=== PATIENT | female | born 1955 | race Caucasian/White ===

== ENCOUNTER 2022-12-28 01:04 | Emergency (ER) | payer MEDICARE, OTHER, SELFPAY ==
[2022-12-28 01:06] VITALS: PULSE 0; BMI 25.9
--- NOTE | 2022-12-28 01:17 | ED.CPR ---
HPI - CPR General Stated Complaint: cardiac arrest Time Seen by Provider: 12/28/22 01:08 Source: EMS Mode of arrival: EMS Limitations: other History of Present Illness HPI narrative: Patient comes in the emergency room in cardiac arrest. According to EMS, approximately at midnight, patient had a witnessed arrest by her . Seems that CPR was not started until EMS/PD arrived to the patient's residence at 00:05. Facility reports that the patient had 1 episode of VFib, patient was shocked with 200 joules, CPR was reassume, however patient remained in asystole. When patient arrived to the emergency room, patient was still in asystole, compressions in progress, patient had a Sinan airway in place. 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 Neck supple. No lymph nodes noted. No crepitus CVS: CPR in progress Respiratory: Sinan airway in place Abdomen: Distended Skin: Cold and mottled Extremities: No lower extremity edema. No Lacerations. No Rash Neuro: Unresponsive Psych: Unresponsive Medical Decision Making Medical Decision Making MDM Narrative: -in the emergency room, patient did not have any pulse, patient remained in asystole. In total, patient received 8 epinephrine IV push. One shock at 200 joules per paramedics. -patient had chest compressions for 55 minutes. -time of called at 01:06 -patient's has been informed -patient had an extensive cardiac history including CHF, aortic stenosis, also known to have CVA, diabetes and asthma. -patient's provided us with discharge instructions from [facility], patient was discharged on 12/18/2022, patient was hospitalized for CHF -is likely that patient secondary to cardiac arrhythmia -I discussed the patient with the medical receptionist assistant, patient declined, cause of natural, medical receptionist assistant case [id number] Differential Diagnosis Differential Diagnoses: The differential diagnosis associated with the presentation includes (Cardiac arrest, CHF exacerbation, aortic stenosis, hypoxia) Procedures Intubation Assist Device Used: other (GlideScope) ET Tube Size: 7.5 ET Tube Uncuffed: No Tube Secured Depth (cm): 23 Tube Secured Location: lips Tube Placement Confirmation: visualized tube passing through cords, equal breath sounds bilaterally, no breath sounds over epigastrium and confirmation by capnometry Critical Care Time Critical Care Time Critical Care Time: Yes Total Critical Care Time: 45 Attestation: I have personally provided critical care time. Time includes review of lab data, radiology results, discussion with consultants, and monitoring for potential decompensation. Intervention performed as documented. Discharge Plan Discharge Clinical Impression: Cardiac arrest Patient Disposition:
--- NOTE | 2022-12-28 02:13 | MHC.EDTECH ---
This Tech called [employer] at 1:30 Then transfer call to
--- NOTE | 2022-12-28 02:41 | PC.NURSE ---
Pt at 0106, aware and at bedside. Pt brought to [facility] [place] by security and technical staff assistant Luisa. Organ bank called and potential donor. has selected [facility]
== END 2022-12-28 01:30 | disposition expired ==
PROVIDERS: Emergency Provider Emergency Medicine
DX: I46.9 Cardiac arrest, cause unspecified (principal)
CPT/HCPCS: 31500; 99283; 99285; J0171